=== PATIENT | male | born 1985 | race Caucasian/White ===

== ENCOUNTER 2023-11-21 16:00 | Outpatient (CLI) | payer OTHER, SELFPAY ==
--- NOTE | ~2023-11-21 | MR_ITS ---
EXAMINATION: MR lumbar spine wo con DATE: 11/21/2023 16:29 INDICATION: Radiculopathy, lumbar region. Low back pain. Right leg pain. TECHNIQUE: Magnetic resonance imaging (MRI) of the lumbar spine was performed without intravenous con trast. Sequences included sagittal T2-weighted FSE, sagittal T2-weighted FS FSE, sagittal T1-weighted FSE, and axial T2-weighted FSE. COMPARISON: None FINDINGS: Bone alignment is normal. There are Schmorl's nodes at multiple levels. Intervertebral disc heights are normal. The distal spinal cord signal intensity is normal. The conus medullaris is at L1 . The following disc levels are specifically discussed: L1-L2: The disc does not extend beyond the endplate margin. There is mild bilateral facet joint osteo arthritis. There is no neural foraminal stenosis. There is no central canal stenosis. L2-L3: The disc does not extend beyond the endplate margin. There is mild right and moderate left fac et joint osteoarthritis. There is no neural foraminal stenosis. There is no central canal stenosis. L3-L4: The disc does not extend beyond the endplate margin. There is severe right and moderate left f acet joint osteoarthritis. There is no neural foraminal stenosis. There is no central canal stenosis. L4-L5: The disc does not extend beyond the endplate margin. There is moderate bilateral facet joint o steoarthritis. There is no neural foraminal stenosis. There is no central canal stenosis. L5-S1: There is a central extrusion. There is severe bilateral facet joint osteoarthritis. There is m ild bilateral neural foraminal stenosis. There is mild central canal stenosis. IMPRESSION: 1. Mild lumbar spondylosis. Reviewed, dictated and finalized at location A. [employer] IMPRESSION: 1. Mild lumbar spondylosis.
== END 2023-11-21 16:01 ==
LOC: MICIMG 16:02
PROVIDERS: PCP Nurse Practitioner Family; Visit Provider Nurse Practitioner Family
DX: M47.26 Other spondylosis with radiculopathy, lumbar region (principal)
CPT/HCPCS: 72148

== ENCOUNTER 2023-12-16 10:06 | Emergency (ER) | payer OTHER, SELFPAY ==
[2023-12-16 10:10] VITALS: BP 105/68; PULSE 116; RESP 18; TEMP 36.4; O2SAT 100
[2023-12-16] MEDS: KETOROLAC 30 MG/ML VIAL (*BKC) IM (11:17)
[2023-12-16] MEDS: dexAMETHasone SOD PHOS INJ 10 MG/ML 1 ML VIAL IM (11:17)
[2023-12-16] MEDS: CYCLOBENZAPRINE HCL 10 MG TABLET PO (11:17)
[2023-12-16] MEDS: LIDOCAINE 5% PATCH 1 PATCH TRANSDERM (11:21)
--- NOTE | 2023-12-16 11:23 | ED.BACK ---
HPI - Back Pain/Injury General Chief Complaint: Back Pain/Injury Stated Complaint: leg and back pain Time Seen by Provider: 12/16/23 10:21 History of Present Illness HPI Narrative: 38-year-old male with chronic back pain presents to emergency department for back pain since July of 2023. Patient states for the past few days it has been worsening. He reports the pain in his right lower back, right glute and radiates down his right posterior knee, sometimes radiates into his ankle. He denies recent injury trauma, saddle anesthesia, focal numbness or weakness, fever, vomiting , bowel or bladder incontinence, bladder retention. States he has been going to the chiropractor, was evaluated by his PCP and has been seen pain management. states he had a steroid injection in his right lower back about 4 weeks ago without complications. Reports that helped a little bit but the pain has since returned. states the injection was not in his spine. Denies IV drug use. Related Data Allergies Allergy/AdvReac Type Severity Reaction Status Date / Time No Known Allergies Allergy Verified 12/16/23 10:47 Review of Systems Review of Systems: CONSTITUTIONAL: Denies fever, chills, or sweats. EYES: Denies visual changes, redness, or discharge. ENT: Denies rhinorrhea, congestion, sore throat, or otalgia. CARDIOVASCULAR: Denies chest pain, palpitations, or edema. RESPIRATORY: Denies cough or dyspnea. GASTROINTESTINAL: Denies abdominal pain, nausea, vomiting, or diarrhea. GENITOURINARY: Denies dysuria or hematuria. SKIN: Denies rash or itching. MUSCULOSKELETAL: See HPI. NEUROLOGIC: Denies headache, numbness, or weakness. PSYCHIATRIC: Denies anxiety or depression. Exam Narrative: GENERAL: Well-appearing, well-nourished, and in no acute distress. HEAD: Normocephalic, atraumatic. NECK: no midline cervical spinous tenderness, step-offs or deformities BACK: mild lumbar midline spinous pain without step-offs, deformities, overlying erythema or edema. Tenderness to the right SI and right piriformis without overlying skin changes. CHEST: Clear to auscultation. No respiratory distress. HEART: Regular rate and rhythm. No murmur heard. Normal peripheral pulses. ABDOMEN: Soft, nontender, nondistended, normal active bowel sounds. EXTREMITIES: DP pulses 2+ bilaterally. Full range of motion of lower extremities. Hip extension, flexion, knee extension and flexion, dorsiflexion and plantar flexion 5/5 bilaterally. Sensation is intact throughout. No saddle anesthesia. Patient is ambulatory SKIN: Warm, dry, no rash. NEURO: No focal deficits. Alert and oriented x3 Course Vital Signs Vital signs: Vital Signs Temperature 97.5 F L 12/16/23 10:10 Pulse Rate 116 H 12/16/23 10:10 Respiratory Rate 18 12/16/23 10:10 Blood Pressure 105/68 12/16/23 10:10 Pulse Oximetry 100 12/16/23 10:10 Temperature 97.5 F L 12/16/23 10:10 Pulse Rate 116 H 12/16/23 10:10 Respiratory Rate 18 12/16/23 10:10 Blood Pressure 105/68 12/16/23 10:10 Pulse Oximetry 100 12/16/23 10:10 MDM - Back Pain/Injury MDM Narrative Medical decision making narrative: 38-year-old male with known Lumbar radiculopathy presents to emergency department for worsening back pain that radiates to his right posterior leg over the past few days. See HPI for further history. Triage vitals significant for tachycardia 116, otherwise unremarkable. Patient is afebrile. Exam significant for the above. No signs of symptoms of cauda equina. Chart review shows an MRI ordered by his PCP on 11/21/2023 which shows mild lumbar spondylosis. Significantly, on L5-S1, there is central exclusion, severe bilateral facet joint osteoarthritis and mild bilateral neural foraminal stenosis. There is mild central canal stenosis. This is consistent with patient's reported radiculopathy along the S1 dermatome. Patient received IM Toradol, IM dexamethasone, Flexeril and l
[2023-12-16 12:54] VITALS: BP 109/72; PULSE 79; RESP 14; O2SAT 98
== END 2023-12-16 12:55 | disposition home or self-care (01) ==
PROVIDERS: Emergency Provider Physician Assistant; PCP Internal Medicine
DX: M54.16 Radiculopathy, lumbar region (principal)
CPT/HCPCS: 96372; 99284; A9270; J1100; J1885